=== PATIENT | male | born 1985 | race Caucasian/White ===

== ENCOUNTER 2024-12-25 20:10 | Inpatient (IN) | payer BC ==
--- NOTE | 2024-12-25 21:19 | ED ---
Arrhythmia/Palpitations HPI - General Chief Complaint: Arrhythmia/Palpitations Stated Complaint: heart beating fast Time Seen by Provider: 12/25/24 20:31 Source: patient Limitations: no limitations - History of Present Illness Initial Comments: 39-year-old male presenting chief complaint of palpitations. Patient reports that he was at work and started to experience the palpitations as well as some shortness of breath. He reports that he felt "something is not right". He is having no chest pain. He is having some dizziness. No nausea vomiting or abdominal pain. Patient does have alcohol use disorder, he drinks half of a fifth daily. Last drink was around 2 AM. No headache. No hallucinations. No lower extremity swelling. Does not take any medications. - Related Data Previous Rx's Medication Instructions Recorded Apixaban [Eliquis] 5 mg PO BID 28 Days #56 tab 12/27/24 Losartan [Cozaar] 25 mg PO DAILY #30 tab 12/27/24 Metoprolol Succinate (ER) [Toprol 50 mg PO DAILY #30 tab 12/27/24 XL] Allergies Allergy/AdvReac Type Severity Reaction Status Date / Time Sulfa (Sulfonamide Allergy Unknown Verified 12/26/24 07:34 Antibiotics) Childhood Review of Systems ROS Statement: Those systems with pertinent positive or pertinent negative responses have been documented in the HPI. ROS Other: All systems not noted in ROS Statement are negative. Past Medical History Past Medical History: No Reported History History of Any Multi-Drug Resistant Organisms: None Reported Past Surgical History: No Surgical Hx Reported Past Psychological History: No Psychological Hx Reported Smoking Status: Never smoker Past Alcohol Use History: Heavy Past Drug Use History: Marijuana General Exam Limitations: no limitations General appearance: alert, in no apparent distress Head exam: Present: atraumatic, normocephalic, normal inspection Eye exam: Present: normal appearance, EOMI Neck exam: Present: normal inspection. Absent: meningismus Respiratory exam: Present: normal lung sounds bilaterally. Absent: respiratory distress, wheezes, rales, rhonchi, stridor Cardiovascular Exam: Present: tachycardia, irregular rhythm. Absent: systolic murmur, diastolic murmur, rubs, gallop, clicks Extremities exam: Absent: pedal edema Neurological exam: Present: alert, oriented X3 Psychiatric exam: Present: normal affect, normal mood Skin exam: Present: warm, dry Course Vital Signs 12/25/24 12/25/24 12/25/24 20:13 20:52 21:17 Temperature 97.9 F Pulse Rate 81 124 H Pulse Rate [ 154 H Case Management Specialist ] Respiratory 18 15 Rate Blood Pressure 226/145 151/110 Blood Pressure [Right Arm] O2 Sat by Pulse 96 97 Oximetry 12/25/24 12/25/24 12/26/24 22:47 23:15 00:07 Temperature 97.7 F Pulse Rate 105 H 124 H Pulse Rate [ 89 Case Management Specialist ] Respiratory 17 17 18 Rate Blood Pressure 142/128 128/104 Blood Pressure 123/91 [Right Arm] O2 Sat by Pulse 97 97 99 Oximetry 12/26/24 12/26/24 12/26/24 03:24 08:30 12:00 Temperature 98.5 F 98.2 F Pulse Rate Pulse Rate [ 90 84 71 Case Management Specialist ] Respiratory 18 16 16 Rate Blood Pressure Blood Pressure 130/104 140/87 132/108 [Right Arm] O2 Sat by Pulse 99 97 97 Oximetry 12/26/24 16:45 Temperature 98.2 F Pulse Rate Pulse Rate [ 75 Case Management Specialist ] Respiratory 16 Rate Blood Pressure Blood Pressure 149/100 [Right Arm] O2 Sat by Pulse 98 Oximetry Medical Decision Making - Medical Decision Making EKG shows A-fib with RVR. Ventricular rate 145. QRS 99. QT 277. QTc 361. Was pt. sent in by a medical professional or institution (, PA, LOW VISION THERAPIST, urgent care, hospital, or snf...) When possible be specific @ -No Did you speak to anyone other than the patient for history (EMS, parent, family, police, friend...)? What history was obtained from this source @ -No Did you review nursing and triage notes (agree or disagree)? Why? @ -I reviewed and agree with nursing and triage notes Were old charts reviewed (outside hosp., previous admission, EMS record, old EKG, old radiological studies, urgent care reports/EKG's, snf records)? Report findings @ -No old charts were reviewed Differential Diagnosis (chest pain, altered mental status, abdominal pain women, abdominal pain men, vaginal bleeding, weakness, fever, dyspnea, syncope, headache, dizziness, GI bleed, back pain, seizure, CVA, palpatations, mental health, musculoskeletal)? @ -Differential Palpitations Ventricular arrhythmias, atrial arrhythmias, myocardial infarction, anemia, thyrotoxicosis, electrolyte imbalance, hypokalemia, pulmonary embolism, pulmonary disease, drugs, alcohol, anxiety, stress.... This is not meant to be an all-inclusive list. EKG interpreted by me (3pts min.). @ -As above X-rays interpreted by me (1pt min.). @ -Chest x-ray shows no acute process CT interpreted by me (1pt min.). @ -None done U/S interpreted by me (1pt. min.). @ -None done What testing was considered but not performed or refused? (CT, X-rays, U/S, labs)? Why? @ -None What meds were considered but not given or refused? Why? @ -None Did you discuss the management of the patient with other professionals (professionals i.e. , PA, LOW VISION THERAPIST, lab, RT, psych nurse, social services, residence life coordinator, teacher, audit officer, pillowcase cleaner)? Give summary @ -Spoke with Myrna Hu from [facility] who accepts admission Was smoking cessation discussed for >3mins.? @ -No Was critical care preformed (if so, how long)? @ -No Were there social determinants of health that impacted care today? How? (Homelessness, low income, unemployed, alcoholism, drug addiction, transportation, low edu. Level, literacy, decrease access to med. care, retirement, rehab)? @ -No Was there de-escalation of care discussed even if they declined (Discuss DNR or withdrawal of care, Hospice)? DNR status @ -No What co-morbidities impacted this encounter? (DM, HTN, Smoking, COPD, CAD, Cancer, CVA, ARF, Chemo, Hep., AIDS, mental health diagnosis, sleep apnea, morbid obesity)? @ -Alcohol use disorder Was patient admitted / discharged? Hospital course, mention meds given and route, prescriptions, significant lab abnormalities, going to OR and other pertinent info. @ -39-year-old male presenting with chief complaint of palpitations. History of alcoholism. History and physical examination are conducted. Patient is tachycardic with an irregular rhythm. He has noted to be in A-fib RVR. He is started on a Cardizem drip, with a bolus of 10 mg and rate of 10 mg/h. Lab work requires no immediate action. Negative troponin and negative D-dimer. TSH is WNL. Elevated AST and ALT which corresponds to the patient's alcohol use. His last drink was at 2 AM. Patient is started on heparin. He is also started on CIWA protocol. He is educated on today's findings. He will require admission for new onset A-fib with RVR. Patient is agreeable with this plan. I discussed this case with my attending Dr. Davison Undiagnosed new problem with uncertain prognosis? @ -No Drug Therapy requiring intensive monitoring for toxicity (Heparin, Nitro, Insulin, Cardizem)? @ -Heparin, Cardizem Were any procedures done? @ -No Diagnosis/symptom? @ -A-fib RVR Acute, or Chronic, or Acute on Chronic? @ -Acute Uncomplicated (without systemic symptoms) or Complicated (systemic symptoms)? @ -Complicated Side effects of treatment? @ -No Exacerbation, Progression, or Severe Exacerbation? @ -No Poses a threat to life or bodily function? How? (Chest pain, [place], [place], pneumonia, PE, COPD, DKA, ARF, appy, cholecystitis, CVA, Diverticulitis, Homicidal, S uicidal, threat to staff... and all critical care pts) @ -Yes - Lab Data Result diagrams: 12/26/24 04:08 12/27/24 07:04 Lab Results 12/25/24 12/25/24 12/25/24 Range/Units 21:12 21:12 21:12 WBC 10.6 (3.8-10.6) k/uL RBC 5.43 (4.30-5.90) m/uL Hgb 17.6 H (13.0-17.5) gm/dL Hct 51.6 (39.0-53.0) % MCV 95.0 (80.0-100.0) fL MCH 32.4 (25.0-35.0) pg MCHC 34.1 (31.0-37.0) g/dL RDW 12.0 (11.5-15.5) % Plt Count 209 (150-450) k/uL MPV 8.4 Neutrophils % 61 % Lymphocytes % 26 % Monocytes % 7 % Eosinophils % 1 % Basophils % 1 % Neutrophils # 6.5 (1.3-7.7) k/uL Lymphocytes # 2.8 (1.0-4.8) k/uL Monocytes # 0.8 (0-1.0) k/uL Eosinophils # 0.1 (0-0.7) k/uL Basophils # 0.1 (0-0.2) k/uL PT 10.7 (10.0-12.5) sec INR 1.0 (<1.2) APTT 24.1 (22.0-30.0) sec D-Dimer <0.17 (<0.60) mg/L FEU Sodium 141 (137-145) mmol/L Potassium 4.3 (3.5-5.1) mmol/L Chloride 102 (98-107) mmol/L Carbon Dioxide 25 (22-30) mmol/L Anion Gap 14 mmol/L BUN 15 (9-20) mg/dL Creatinine 0.95 (0.66-1.25) mg/dL Est GFR (CKD-EPI)AfAm >90 (>60 ml/min/1.73 sqM) Est GFR (CKD-EPI)NonAf >90 (>60 ml/min/1.73 sqM) Glucose 105 H (74-99) mg/dL Calcium 10.1 (8.4-10.2) mg/dL Magnesium 2.2 (1.6-2.3) mg/dL Total Bilirubin 0.8 (0.2-1.3) mg/dL AST 98 H (17-59) U/L ALT 173 H (4-49) U/L Alkaline Phosphatase 86 (38-126) U/L Troponin I (0.000-0.034) ng/mL Total Protein 8.6 H (6.3-8.2) g/dL Albumin 5.3 H (3.5-5.0) g/dL TSH 2.130 (0.465-4.680) mIU/L 12/25/24 Range/Units 21:12 WBC (3.8-10.6) k/uL RBC (4.30-5.90) m/uL Hgb (13.0-17.5) gm/dL Hct (39.0-53.0) % MCV (80.0-100.0) fL MCH (25.0-35.0) pg MCHC (31.0-37.0) g/dL RDW (11.5-15.5) % Plt Count (150-450) k/uL MPV Neutrophils % % Lymphocytes % % Monocytes % % Eosinophils % % Basophils % % Neutrophils # (1.3-7.7) k/uL Lymphocytes # (1.0-4.8) k/uL Monocytes # (0-1.0) k/uL Eosinophils # (0-0.7) k/uL Basophils # (0-0.2) k/uL PT (10.0-12.5) sec INR (<1.2) APTT (22.0-30.0) sec D-Dimer (<0.60) mg/L FEU Sodium (137-145) mmol/L Potassium (3.5-5.1) mmol/L Chloride (98-107) mmol/L Carbon Dioxide (22-30) mmol/L Anion Gap mmol/L BUN (9-20) mg/dL Creatinine (0.66-1.25) mg/dL Est GFR (CKD-EPI)AfAm (>60 ml/min/1.73 sqM) Est GFR (CKD-EPI)NonAf (>60 ml/min/1.73 sqM) Glucose (74-99) mg/dL Calcium (8.4-10.2) mg/dL Magnesium (1.6-2.3) mg/dL Total Bilirubin (0.2-1.3) mg/dL AST (17-59) U/L ALT (4-49) U/L Alkaline Phosphatase (38-126) U/L Troponin I <0.012 (0.000-0.034) ng/mL Total Protein (6.3-8.2) g/dL Albumin (3.5-5.0) g/dL TSH (0.465-4.680) mIU/L Disposition Clinical Impression: Atrial fibrillation with rapid ventricular response Disposition: ADMITTED IP TO THIS HOSP Condition: Serious Time of Disposition: 22:41
[2024-12-25] MEDS: SODIUM CHLORIDE 0.9% 1,000 ML IV ONE (21:23)
[2024-12-25] MEDS: DILTIAZEM DRIP BOLUS FROM BAG 1 MG SOLN IV ONE (21:24)
[2024-12-25] MEDS: DILTIAZEM 125 MG in SODIUM CHLORIDE 0.9% 100 ML IV SCH (21:24)
--- NOTE | 2024-12-25 21:29 | XR ---
EXAMINATION TYPE: XR chest 2V DATE OF EXAM: 12/25/2024 9:16 PM COMPARISON: Chest radiographs from 10/22/2012 CLINICAL INDICATION: Male, 39 years old with history of dysrhythmia; TECHNIQUE: XR chest 2V Frontal and lateral views of the chest. FINDINGS: Lungs/Pleura: There is no evidence of pleural effusion, focal consolidation, or pneumothorax. Pulmonary vascularity: Unremarkable. Heart/mediastinum: Cardiomediastinal silhouette is unremarkable. Musculoskeletal: No acute osseous pathology. IMPRESSION: No acute cardiopulmonary disease/process. [facility], , 12/25/2024 9:27 PM
[2024-12-25 21:42] LABS: Basophils # (A) 0.1 k/uL (0-0.2); Basophils % (A) 1 %; Eosinophils # (A) 0.1 k/uL (0-0.7); Eosinophils % (A) 1 %; HCT 51.6 % (39.0-53.0); HGB 17.6 gm/dL (13.0-17.5); Lymphocytes # (A) 2.8 k/uL (1.0-4.8); Lymphocytes % (A) 26 %; MCH 32.4 pg (25.0-35.0); MCHC 34.1 g/dL (31.0-37.0); Mean Platelet Volume 8.4; Monocytes # (A) 0.8 k/uL (0-1.0); Monocytes % (A) 7 %; Neutrophils # (A) 6.5 k/uL (1.3-7.7); Neutrophils % (A) 61 %; Platelet Count 209 k/uL (150-450); RBC 5.43 m/uL (4.30-5.90); WBC 10.6 k/uL (3.8-10.6)
[2024-12-25 21:56] LABS: ALT 173 U/L (4-49); AST 98 U/L (17-59); African American GFR (CKD) >90 (>60 ml/min/1.73 sqM); Albumin 5.3 g/dL (3.5-5.0); Alkaline Phosphatase 86 U/L (38-126); Anion Gap 14 mmol/L; Blood Urea Nitrogen 15 mg/dL (9-20); Calcium 10.1 mg/dL (8.4-10.2); Carbon Dioxide 25 mmol/L (22-30); Chloride 102 mmol/L (98-107); Glucose 105 mg/dL (74-99); Magnesium 2.2 mg/dL (1.6-2.3); Non-African American GFR(CKD) >90 (>60 ml/min/1.73 sqM); Potassium 4.3 mmol/L (3.5-5.1); Sodium 141 mmol/L (137-145); Total Bilirubin 0.8 mg/dL (0.2-1.3); Total Protein 8.6 g/dL (6.3-8.2)
[2024-12-25 22:09] LABS: Partial Thromboplastin Time 24.1 sec (22.0-30.0); Prothrombin Time 10.7 sec (10.0-12.5)
[2024-12-25] MEDS ORDERED: LORazepam 2 MG/ML INJ IV PRN ×3 (22:35)
[2024-12-25] MEDS ORDERED: NALOXONE 0.4 MG/ML 1 ML VIAL IV PRN (22:39)
[2024-12-25] MEDS: HEPARIN SOD,PORK IN 0.45% NACL 25,000 UNIT in 0.45% NACL 1 250ML.BAG IV SCH (23:11)
[2024-12-25] MEDS: HEPARIN SODIUM 1,000 UN/ML (10ML VL) IV ONE (23:13)
[2024-12-26 00:12] LABS: Appearance,Urine Clear (Clear); Bilirubin,Urine Negative (Negative); Blood,Urine Negative (Negative); Color,Urine Colorless; Glucose,Urine (UA) Negative (Negative); Ketones,Urine Negative (Negative); Leukocyte Esterase,Urine Negative (Negative); Nitrite,Urine Negative (Negative); PH, Urine 7.5 (5.0-8.0); Protein,Urine Negative (Negative); Specific Gravity,Urine 1.009 (1.001-1.035); Urobilinogen,Urine <2.0 mg/dL (<2.0)
[2024-12-26 00:26] LABS: Amphetamine Screen,Urine Not Detected (NotDetected); Barbiturate Screen,Urine Not Detected (NotDetected); Benzodiazepines Screen,Urine Not Detected (NotDetected); Cocaine Screen,Urine Not Detected (NotDetected); Methadone Screen, Urine Not Detected (NotDetected); Opiate Screen,Urine Not Detected (NotDetected); Oxycodone Screen, Urine Not Detected (NotDetected); Phencyclidine Screen,Urine Not Detected (NotDetected); Tricyclic Antidepressant,Urine Not Detected (NotDetected); Urn Cannabinoid Scrn Detected (NotDetected)
[2024-12-26 04:22] LABS: Basophils # (A) 0.1 k/uL (0-0.2); Basophils % (A) 1 %; Eosinophils % (A) 1 %; HCT 51.5 % (39.0-53.0); HGB 16.6 gm/dL (13.0-17.5); Lymphocytes # (A) 2.3 k/uL (1.0-4.8); Lymphocytes % (A) 24 %; MCH 30.9 pg (25.0-35.0); MCHC 32.3 g/dL (31.0-37.0); MCV 95.7 fL (80.0-100.0); Mean Platelet Volume 8.7; Monocytes # (A) 0.5 k/uL (0-1.0); Monocytes % (A) 5 %; Neutrophils # (A) 6.4 k/uL (1.3-7.7); Neutrophils % (A) 67 %; Platelet Count 212 k/uL (150-450); RBC 5.39 m/uL (4.30-5.90); RDW 11.9 % (11.5-15.5); WBC 9.5 k/uL (3.8-10.6)
[2024-12-26 04:41] LABS: Prothrombin Time 11.1 sec (10.0-12.5)
[2024-12-26] MEDS: HEPARIN SODIUM 1,000 UN/ML (10ML VL) IV PRN (05:00)
[2024-12-26] MEDS: SODIUM CHLORIDE 0.9% 1,000 ML IV SCH (05:42)
[2024-12-26] MEDS: METOPROLOL TARTRATE 25 MG TAB PO SCH (08:30)
--- NOTE | 2024-12-26 10:08 | P.CRDCN ---
History of Present Illness Consult date: 12/26/24 Reason for Consult (text): New onset A-fib with RVR History of present illness: This is a 39-year-old male with no previous cardiac history. 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 Patient does have history of alcohol abuse and usually drinks 1 pint per day. Patient gives history that he felt his heart was beating weird yesterday. He states he was just walking when it occurred. He had someone check his blood pressure at work and it was found to be elevated. Upon arrival to the emergency center, blood pressure was 226/145. Patient denies having any chest pain. No lightheadedness or dizziness, no syncopal episodes. He denies history of smoking. Patient was found to be in atrial fibrillation at 145 beats per minute. He has been started on Cardizem drip and heparin drip. Discussed plan to continue current medical management and if he has not converted by morning, perform SORAYA and cardioversion. Patient is agreeable to move forward with this tomorrow. Patient has been started on the CIWA protocol. His last alcohol intake was Tuesday at 2 AM. He is normally physically active and walks 7 to 8 miles per day at work. Blood pressure 130/104, heart rate 90, pulse ox 99% on room air. Telemetry is atrial fibrillation. -EKG: Atrial fibrillation at 145 bpm -Chest x-ray: No acute findings -Laboratory studies: CBC INR, electrolytes and renal function within normal limits. AST 98, ALT 178. Troponin negative x 1. TSH 2.13. Urine drug screen positive for marijuana. -Home cardiac medications: None Review Of Systems: At the time of my exam: CONSTITUTIONAL: Denies fever or chills. HEENT: Denies blurred vision, vision changes, or eye pain. Denies hemoptysis CARDIOVASCULAR: Denies chest pain. Denies orthopnea. Denies PND. Denies palpitations RESPIRATORY: Denies shortness of breath. GASTROINTESTINAL: Denies abdominal pain. Denies nausea or vomiting. HEMATOLOGIC: Denies bleeding disorders. GENITOURINARY: Denies any blood in urine. SKIN: Denies puritis. Denies rash. Physical examination: Gen: This is a 39-year-old male in no acute distress VS: reviewed HEENT: Head is atraumatic, normocephalic. Pupils equal, round. Sclerae is anicteric. NECK: Supple. No JVD. LUNGS: Clear to auscultation. No wheezes or rhonchi. No intercostal retractions. HEART: Irregular rate and rhythm. No murmur. ABDOMEN: Soft No tenderness. EXTREMITIES: No pedal edema. No calf tenderness. NEUROLOGICAL: Patient is awake, alert and oriented x3. Assessment: New onset paroxysmal A-fib with RVR, currently rate controlled Hypertensive urgency Alcohol abuse Marijuana use Plan: Continue patient on Cardizem drip at 10 mg/h Start patient on Lopressor 25 mg 3 times daily Continue heparin drip Schedule patient for SORAYA and cardioversion tomorrow with Dr. Velazquez Obtain 2-D echocardiogram and Doppler study to assess cardiac structure and function Further recommendations to follow based upon clinical course Thank you kindly for this consultation. Nurse practitioner note has been reviewed, I agree with documented findings and plan of care. Patient was seen and examined. Past Medical History Past Medical History: No Reported History History of Any Multi-Drug Resistant Organisms: None Reported Past Surgical History: No Surgical Hx Reported Past Psychological History: No Psychological Hx Reported Smoking Status: Never smoker Past Alcohol Use History: Heavy Past Drug Use History: Marijuana Medications and Allergies Home Medications Medication Instructions Recorded Confirmed Type No Known Home Medications 12/26/24 12/26/24 History Allergies Allergy/AdvReac Type Severity Reaction Status Date / Time Sulfa (Sulfonamide Allergy Unknown Verified 12/26/24 07:34 Antibiotics) Childhood Physical Exam Vitals: Vital Signs Temp Pulse Pulse Resp BP BP Pulse Ox 12/26/24 03:24 90 18 130/104 99 12/26/24 00:07 97.7 F 89 18 123/91 99 12/25/24 23:15 124 H 17 128/104 97 12/25/24 22:47 105 H 17 142/128 97 12/25/24 21:17 124 H 15 151/110 97 12/25/24 20:52 154 H 12/25/24 20:13 97.9 F 81 18 226/145 96 Intake and Output 12/25/24 12/26/24 12/26/24 22:59 06:59 14:59 Intake Total 58.345 Balance 58.345 Intake: Intake, IV Titration 58.345 Amount Heparin Sod,Pork in 0.45% 58.345 NaCl 25,000 unit In 0.45 % NaCl 1 250ml.bag @ 7.35 UNITS/KG/HR 10.002 mls/ hr IV .Q24H [facility] Rx#: [id number] Other: Weight 136.078 kg Results 12/26/24 04:08 12/25/24 21:12 Cardiac Enzymes 12/25/24 12/25/24 Range/Units 21:12 21:12 AST 98 H (17-59) U/L Troponin I <0.012 (0.000-0.034) ng/mL Coagulation 12/25/24 12/26/24 Range/Units 21:12 04:08 PT 10.7 11.1 (10.0-12.5) sec APTT 24.1 27.0 (22.0-30.0) sec CBC 12/25/24 12/26/24 Range/Units 21:12 04:08 WBC 10.6 9.5 (3.8-10.6) k/uL RBC 5.43 5.39 (4.30-5.90) m/uL Hgb 17.6 H 16.6 (13.0-17.5) gm/dL Hct 51.6 51.5 (39.0-53.0) % Plt Count 209 212 (150-450) k/uL Comprehensive Metabolic Panel 12/25/24 Range/Units 21:12 Sodium 141 (137-145) mmol/L Potassium 4.3 (3.5-5.1) mmol/L Chloride 102 (98-107) mmol/L Carbon Dioxide 25 (22-30) mmol/L BUN 15 (9-20) mg/dL Creatinine 0.95 (0.66-1.25) mg/dL Glucose 105 H (74-99) mg/dL Calcium 10.1 (8.4-10.2) mg/dL AST 98 H (17-59) U/L ALT 173 H (4-49) U/L Alkaline Phosphatase 86 (38-126) U/L Total Protein 8.6 H (6.3-8.2) g/dL Albumin 5.3 H (3.5-5.0) g/dL Current Medications Generic Name Dose Route Start Last Admin Trade Name Freq PRN Reason Stop Dose Admin Heparin Sodium (Porcine) 0 unit 12/25/24 22:36 12/26/24 05:00 Heparin Sodium 1,000 Un/Ml (10ml Vl) IV 4,000 unit PER PROTOCOL PRN Administration Low PTT Protocol Diltiazem HCl 125 mg/ Sodium 125 mls @ 10 mls/hr 12/25/24 21:00 12/25/24 21:24 Chloride IV 10 mg/hr .[id number] TENA 10 mls/hr Administration 10 MG/HR Heparin Sodium/Sodium Chloride 250 mls @ 10.002 mls/hr 12/25/24 22:45 12/26/24 05:01 25,000 unit/ Sodium Chloride IV 10.35 units/kg/hr .Q24H TENA 14.084 mls/hr Titration Protocol 7.35 UNITS/KG/HR Sodium Chloride 1,000 mls @ 130 mls/hr 12/25/24 22:45 12/26/24 06:03 Saline 0.9% IV 130 mls/hr .[id number] TENA Administration Lorazepam 1 mg 12/25/24 22:35 Lorazepam 2 Mg/Ml Inj IV Q1HR PRN CIWA 10 to 15 Lorazepam 1 mg 12/25/24 22:35 Lorazepam 2 Mg/Ml Inj IV Q2HR PRN CIWA 8 or 9 Lorazepam 2 mg 12/25/24 22:35 Lorazepam 2 Mg/Ml Inj IV 12/27/24 22:35 Q10M PRN CIWA 16 or higher Naloxone HCl 0.2 mg 12/25/24 22:39 Naloxone 0.4 Mg/Ml 1 Ml Vial IV Q2M PRN Opioid Reversal Intake and Output 12/25/24 12/26/24 12/26/24 22:59 06:59 14:59 Intake Total 58.345 Balance 58.345 Intake: Intake, IV Titration 58.345 Amount Heparin Sod,Pork in 0.45% 58.345 NaCl 25,000 unit In 0.45 % NaCl 1 250ml.bag @ 7.35 UNITS/KG/HR 10.002 mls/ hr IV .Q24H [facility] Rx#: [id number] Other: Weight 136.078 kg 12/26/24 04:08 12/25/24 21:12
[2024-12-26] MEDS ORDERED: fentaNYL (PF) 50 MCG/ML 2 ML AMP IVP PRN (10:10)
[2024-12-26] MEDS ORDERED: MIDAZOLAM 2 MG/2 ML VIAL IV PRN (10:10)
[2024-12-26] MEDS ORDERED: BENZOCAINE SPRAY 1 CAN TOPICAL PRN (10:10)
--- NOTE | 2024-12-26 12:09 | P.HPIM ---
History of Present Illness Patient is pleasant 39-year-old male came in with complaints of palpitations found to be in atrial fibrillation with rapid unclear rate presently on Cardizem which is being transitioned to metoprolol patient is also on IV heparin at this time. Patient does have history of alcoholism drinks on average about a pint of hard liquor daily. Patient denies any shortness of breath pulmonary edema at this time chest x-ray did not show any significant abnormality EKG atrial fibrillation with rapid unclear rate AST and ALT are mildly elevated TSH within normal limits drug screen is positive for marijuana and patient does admit to vaping marijuana. REVIEW OF SYSTEMS: All other systems are negative except those mentioned in the HPI PHYSICAL EXAMINATION: GENERAL: The patient is alert and oriented x3, not in any acute distress. Well developed, well nourished. HEENT: Pupils are round and equally reacting to light. EOMI. No scleral icterus. No conjunctival pallor. Normocephalic, atraumatic. No pharyngeal erythema. No thyromegaly. CARDIOVASCULAR: S1 and S2 present. No murmurs, rubs, or gallops. PULMONARY: Chest is clear to auscultation, no wheezing or crackles. ABDOMEN: Soft, nontender, nondistended, normoactive bowel sounds. No palpable organomegaly. MUSCULOSKELETAL: No joint swelling or deformity. EXTREMITIES: No cyanosis, clubbing, or pedal edema. NEUROLOGICAL: Gross neurological examination did not reveal any focal deficits. SKIN: No rashes. Assessment and plan New onset atrial fibrillation: Probably secondary to alcohol use and marijuana use continue with Cardizem wean off Cardizem patient was started on beta-sergio continue with IV heparin. Plan for SORAYA cardioversion if he does not convert by tomorrow -Alcohol use patient did not have any withdrawals in the past. Although patient is on withdrawal precautions at this time -Acute alcoholic hepatitis -Possible essential hypertension DVT prophylaxis: On anticoagulation with IV heparin Past Medical History Past Medical History: No Reported History History of Any Multi-Drug Resistant Organisms: None Reported Past Surgical History: No Surgical Hx Reported Past Psychological History: No Psychological Hx Reported Smoking Status: Never smoker Past Alcohol Use History: Heavy Past Drug Use History: Marijuana Medications and Allergies Home Medications Medication Instructions Recorded Confirmed Type No Known Home Medications 12/26/24 12/26/24 History Allergies Allergy/AdvReac Type Severity Reaction Status Date / Time Sulfa (Sulfonamide Allergy Unknown Verified 12/26/24 07:34 Antibiotics) Childhood Physical Exam Vitals: Vital Signs Temp Pulse Pulse Resp BP BP Pulse Ox 12/26/24 03:24 90 18 130/104 99 12/26/24 00:07 97.7 F 89 18 123/91 99 12/25/24 23:15 124 H 17 128/104 97 12/25/24 22:47 105 H 17 142/128 97 12/25/24 21:17 124 H 15 151/110 97 12/25/24 20:52 154 H 12/25/24 20:13 97.9 F 81 18 226/145 96 Intake and Output 12/25/24 12/26/24 12/26/24 22:59 06:59 14:59 Intake Total 58.345 209.353 Balance 58.345 209.353 Intake: Intake, IV Titration 58.345 209.353 Amount Diltiazem 125 mg In 111 Sodium Chloride 0.9% 100 ml @ 10 MG/HR 10 mls/hr IV .[id number] [facility] Rx#: [id number] Heparin Sod,Pork in 0.45% 58.345 98.353 NaCl 25,000 unit In 0.45 % NaCl 1 250ml.bag @ 7.35 UNITS/KG/HR 10.002 mls/ hr IV .Q24H [facility] Rx#: [id number] Other: Weight 136.078 kg Results CBC & Chem 7: 12/26/24 04:08 12/25/24 21:12 Labs: Abnormal Lab Results - Last 24 Hours (Table) 12/25/24 12/25/24 12/25/24 Range/Units 21:12 21:12 23:15 Hgb 17.6 H (13.0-17.5) gm/dL APTT (22.0-30.0) sec Glucose 105 H (74-99) mg/dL AST 98 H (17-59) U/L ALT 173 H (4-49) U/L Total Protein 8.6 H (6.3-8.2) g/dL Albumin 5.3 H (3.5-5.0) g/dL U Marijuana (THC) Screen Detected H (NotDetected) 12/26/24 Range/Units 10:39 Hgb (13.0-17.5) gm/dL APTT 32.6 H (22.0-30.0) sec Glucose (74-99) mg/dL AST (17-59) U/L ALT (4-49) U/L Total Protein (6.3-8.2) g/dL Albumin (3.5-5.0) g/dL U Marijuana (THC) Screen (NotDetected)
[2024-12-27 05:01] VITALS: TEMP 98.4
[2024-12-27] MEDS ORDERED: LORazepam 1 MG/0.5 ML VIAL IV PRN ×3 (08:08→08:09)
[2024-12-27 09:32] LABS: ALT 174 U/L (4-49); AST 114 U/L (17-59); African American GFR (CKD) >90 (>60 ml/min/1.73 sqM); Albumin 4.3 g/dL (3.5-5.0); Alkaline Phosphatase 65 U/L (38-126); Anion Gap 11 mmol/L; Blood Urea Nitrogen 10 mg/dL (9-20); Carbon Dioxide 21 mmol/L (22-30); Chloride 106 mmol/L (98-107); Glucose 98 mg/dL (74-99); Non-African American GFR(CKD) >90 (>60 ml/min/1.73 sqM); Potassium 4.2 mmol/L (3.5-5.1); Sodium 138 mmol/L (137-145)
[2024-12-27] MEDS: APIXABAN 5 MG TAB PO SCH (10:40)
[2024-12-27] MEDS: LOSARTAN 25 MG TAB PO SCH (10:40)
[2024-12-27] MEDS: METOPROLOL SUCCINATE (ER) 50 MG TAB.ER.24H PO SCH (10:40)
--- NOTE | 2024-12-27 13:24 | CA ---
Transthoracic Echo Report Name: Christ De Los Santos Age: 39 Gender: M : 1985 Exam Date: 12/27/2024 07:44 Exam Location: [facility] Ht (in): 73 Wt (lb): 300 Ordering Physician: Charli Manzano Attending/Referring Phys: Can Washer Jerica Stringer RDCS Procedure CPT: Indications: new onset a-fib rvr Cardiac Hx: Technical Quality: Good Contrast 1: Total Dose (mL): Contrast 2: Total Dose (mL): MEASUREMENTS (Male / Female) Normal Values 2D ECHO LV Diastolic Diameter PLAX 4.9 cm 4.2 - 5.9 / 3.9 - 5.3 cm LV Systolic Diameter PLAX 3.5 cm IVS Diastolic Thickness 1.4 cm 0.6 - 1.0 / 0.6 - 0.9 cm LVPW Diastolic Thickness 1.4 cm 0.6 - 1.0 / 0.6 - 0.9 cm LV Relative Wall Thickness 0.6 LVOT Diameter 2.1 cm LV Diastolic Volume MOD BP 197.7 cm??? 67 - 155 / 56 - 104 cm??? LV Systolic Volume MOD BP 83.8 cm??? 22 - 58 / 19 - 49 cm??? LV Ejection Fraction MOD BP 57.6 % >= 55 % LV Cardiac Index MOD BP 2866.1 cm???/min???m??? LV Diastolic Volume MOD 4C 188.2 cm??? LV Systolic Volume MOD 4C 77.0 cm??? LV Ejection Fraction MOD 4C 59.1 % LV Cardiac Index MOD 4C 2797.7 cm???/min???m??? LV Diastolic Length 4C 9.5 cm LV Systolic Length 4C 7.7 cm LV Diastolic Volume MOD 2C 205.4 cm??? LV Systolic Volume MOD 2C 87.3 cm??? LV Ejection Fraction MOD 2C 57.5 % LV Cardiac Index MOD 2C 2973.0 cm???/min???m??? LV Diastolic Length 2C 9.7 cm LV Systolic Length 2C 8.2 cm LA Volume 85.9 cm??? 18 - 58 / 22 - 52 cm??? LA Volume Index 31.8 cm???/m??? 16 - 28 cm???/m??? DOPPLER AV Peak Velocity 118.0 cm/s AV Peak Gradient 5.6 mmHg AV Mean Velocity 84.4 cm/s AV Mean Gradient 3.1 mmHg AV Velocity Time Integral 23.0 cm LVOT Peak Velocity 96.3 cm/s LVOT Peak Gradient 3.7 mmHg LVOT Velocity Time Integral 17.7 cm LVOT Stroke Volume 64.1 cm??? LVOT Stroke Volume Index 25.1 ml/m??? LVOT Cardiac Index 1612.4 cm???/min???m??? AV Area Cont Eq vti 2.8 cm??? AV Area Cont Eq pk 3.0 cm??? MV Area PHT 4.2 cm??? Mitral E Point Velocity 79.6 cm/s Mitral A Point Velocity 52.3 cm/s Mitral E to A Ratio 1.5 MV Deceleration Time 180.1 ms TR Peak Velocity 207.3 cm/s TR Peak Gradient 17.2 mmHg Right Atrial Pressure 5.0 mmHg Pulmonary Artery Systolic Pressu 22.2 mmHg Right Ventricular Systolic Press 22.2 mmHg PV Peak Velocity 75.3 cm/s PV Peak Gradient 2.3 mmHg FINDINGS Left Ventricle Left ventricular ejection fraction is estimated at 55-60 %. Normal left ventricular systolic function with no obvious regional wall motion abnormalities. Left ventricular cavity size normal. Moderately increased left ventricular wall thickness. Right Ventricle Mild right ventricular dilatation. Normal right ventricular global systolic function. Right ventricular systolic pressure within normal limits. Right Atrium Normal right atrial size. Left Atrium Mildly increased left atrial volume. Mildly increased left atrial area. Mitral Valve Structurally normal mitral valve. No evidence for mitral valve prolapse. No mitral stenosis. Mild mitral regurgitation. Aortic Valve Trileaflet aortic valve. No aortic valve stenosis or regurgitation. Tricuspid Valve Structurally normal tricuspid valve. No tricuspid stenosis. mild tricuspid regurgitation. Pulmonic Valve Structurally normal pulmonic valve. No pulmonic stenosis. Trace pulmonic regurgitation. Pericardium No pericardial effusion. Aorta Aortic annulus normal. Ascending aorta mildly enlarged. CONCLUSIONS Normal ventricular size and systolic function Mild mitral and tricuspid regurgitation Previewed by: Dr. Sandi Lundberg MD (Electronically Signed) Final Date: 27 December 2024 13:23
[2024-12-27 13:43] VITALS: BP 143/87; PULSE 77; RESP 18
--- NOTE | 2024-12-27 14:37 | P.PN ---
Subjective Progress Note Date: 12/27/24 Reason for Consult (text): New onset A-fib with RVR History of present illness: This is a 39-year-old male with no previous cardiac history. 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 Patient does have history of alcohol abuse and usually drinks 1 pint per day. Patient gives history that he felt his heart was beating weird yesterday. He states he was just walking when it occurred. He had someone check his blood pressure at work and it was found to be elevated. Upon arrival to the emergency center, blood pressure was 226/145. Patient rosalva es having any chest pain. No lightheadedness or dizziness, no syncopal episodes. He denies history of smoking. Patient was found to be in atrial fibrillation at 145 beats per minute. He has been started on Cardizem drip and heparin drip. Discussed plan to continue current medical management and if he has not converted by morning, perform SORAYA and cardioversion. Patient is agreeable to move forward with this tomorrow. Patient has been started on the CIWA protocol. His last alcohol intake was Tuesday at 2 AM. He is normally physically active and walks 7 to 8 miles per day at work. Blood pressure 130/104, heart rate 90, pulse ox 99% on room air. Telemetry is atrial fibrillation. -EKG: Atrial fibrillation at 145 bpm -Chest x-ray: No acute findings -Laboratory studies: CBC INR, electrolytes and renal function within normal limits. AST 98, ALT 178. Troponin negative x 1. TSH 2.13. Urine drug screen positive for marijuana. -Home cardiac medications: None 12/27 Patient seen and examined on the cardiac stepdown unit. Patient has converted to sinus rhythm and SORAYA and cardioversion has been canceled for today. Cardizem drip will be discontinued. Blood pressure 150/96, heart rate 80, pulse ox 98% on room air. Repeat blood work reveals creatinine 0.7, potassium 4.2. [place] rdiogram reveals EF of 55 to 60%, mild mitral and tricuspid regurgitation. Physical examination: Gen: This is a 39-year-old male in no acute distress VS: reviewed HEENT: Head is atraumatic, normocephalic. Pupils equal, round. Sclerae is anicteric. NECK: Supple. No JVD. LUNGS: Clear to auscultation. No wheezes or rhonchi. No intercostal retractions. HEART: Regular rate and rhythm. No murmur. ABDOMEN: Soft No tenderness. EXTREMITIES: No pedal edema. No calf tenderness. NEUROLOGICAL: Patient is awake, alert and oriented x3. Assessment: New onset paroxysmal A-fib with RVR, currently sinus rhythm Hypertensive urgency Alcohol abuse Marijuana use Plan: Discontinue Cardizem drip Start patient on Toprol XL 50 mg daily and discontinue short acting beta-sergio Add losartan 25 mg daily Discontinue IV heparin and start patient on Eliquis 5 mg twice daily Patient is cleared for discharge from cardiology and will follow-up in the office with Dr. Rachelle Velazquez in 2 weeks. Nurse practitioner note has been reviewed, I agree with documented findings and plan of care. Patient was seen and examined. Objective - Vital Signs Vital signs: Vital Signs Temp 98.4 F 12/27/24 04:00 Pulse 77 12/27/24 12:00 Resp 18 12/27/24 12:00 BP 143/87 12/27/24 12:00 Pulse Ox 98 12/27/24 12:00 FiO2 Intake & Output 12/26/24 12/27/24 12/27/24 18:59 06:59 18:59 Intake Total 1890.582 981.008 21.333 Balance 1890.582 981.008 21.333 Weight 132.7 kg Intake: Intake, IV Titration 1290.582 441.008 21.333 Amount Diltiazem 125 mg In 111 212.166 21.333 Sodium Chloride 0.9% 100 ml @ 10 MG/HR 10 mls/hr IV .[id number] TENA Rx#: [id number] Heparin Sod,Pork in 0.45% 179.582 228.842 NaCl 25,000 unit In 0.45 % NaCl 1 250ml.bag @ 7.35 UNITS/KG/HR 10.002 mls/ hr IV .Q24H TENA Rx#: [id number] Sodium Chloride 0.9% 1, 1000 000 ml @ 130 mls/hr IV . [id number] TENA Rx#:[id number] Oral 600 540 Other: Voiding Method Toilet Toilet # Voids 2 1 # Bowel Movements 0 - Labs CBC & Chem 7: 12/26/24 04:08 12/27/24 07:04 Labs: Abnormal Lab Results - Last 24 Hours (Table) 12/26/24 12/27/24 12/27/24 Range/Units 19:13 07:04 07:04 APTT 40.5 H 41.8 H (22.0-30.0) sec Carbon Dioxide 21 L (22-30) mmol/L AST 114 H (17-59) U/L ALT 174 H (4-49) U/L
--- NOTE | 2024-12-30 08:42 | P.DS ---
Providers Date of admission: 12/25/24 22:54 Attending physician: Johnny Lane Consults: 12/25/24 22:39 Consult Physician Urgent Consulting Provider: [facility] Consult Reason/Comments: New onset A-fib RVR Do you want consulting provider notified?: Yes, Notify in am Primary care physician: Stated None Hospital Course: Final Diagnosis New onset paroxysmal A-fib with RVR, currently sinus rhythm Hypertensive urgency possible underlying essential hypertension Acute alcoholic hepatitis Alcohol abuse Marijuana use Discharge Disposition Patient stable for discharge home. He is discharged on 4 weeks of Eliquis therapy 5 mg twice daily and patient to follow-up with Dr. Velazquez in the office in 3 weeks. Hospital Course This is a 39-year-old male who came in with complaints of palpitations was found to be in atrial fibrillation with rapid ventricular rate on admission. Patient was started on Cardizem and IV heparin. Patient does have a history of alcoholism and drinks an average of a pint of hard liquor every day. He is not complaining of any shortness of breath he has no evidence of any pulmonary edema on the chest x-ray. His AST and ALT are mildly elevated. TSH is within normal limits. His drug screen is positive for marijuana. Patient was eval by cardiology. He had an echocardiogram which reveals an ejection fraction of 55 to 60% with normal ventricle size and systolic function with mild mitral and tricuspid regurgitation. Patient was transition to oral metoprolol and has spontaneously converted out of atrial fibrillation and is now maintaining normal sinus mechanism with a heart rate in the 70s. His blood pressure is 143/87. He has been afebrile and saturating 90% on room air oxygen. Patient will be discharged on 4 weeks of Eliquis and recommended to follow-up with Dr. Velazquez in the office in 3 weeks. Patient does not have a PCP and was referred to Dr. Fritz Reed in [place] on follow up. Please see medication reconciliation for a list of current medications. Thank you for allowing us to participate in the care of this patient. The impression and plan of care has been dictated by Radha Marrufo, Nurse Practitioner as directed. Dr. Jacque MD I have performed a history and physical examination and medical decision making of this patient, discussed the same with the dictator, and agree with the dictators assessment and plan as written, documented as a scribe. Based on total visit time, I have performed more than 50% of this visit. Patient Condition at Discharge: Fair Plan - Discharge Summary Discharge Rx Participant: Yes New Discharge Prescriptions: New Apixaban [Eliquis] 5 mg PO BID 28 Days #56 tab Losartan [Cozaar] 25 mg PO DAILY #30 tab Metoprolol Succinate (ER) [Toprol XL] 50 mg PO DAILY #30 tab Discharge Medication List Apixaban [Eliquis] 5 mg PO BID 28 Days #56 tab 12/27/24 [Rx] Losartan [Cozaar] 25 mg PO DAILY #30 tab 12/27/24 [Rx] Metoprolol Succinate (ER) [Toprol XL] 50 mg PO DAILY #30 tab 12/27/24 [Rx] Follow up Appointment(s)/Referral(s): None,Stated [Primary Care Provider] - 1-2 days Av Velazquez MD [STAFF PHYSICIAN] - 3 Weeks Fritz Reed MD [REFERRING] - 1 Week (Family doctor ) Activity/Diet/Wound Care/Special Instructions: Continue eliquis 5 mg twice daily for 4 weeks Follow up with cardiology Dr Velazquez in 3 weeks Establish care with a family doctor Discharge Disposition: HOME SELF-CARE
== END 2024-12-27 16:31 | disposition home or self-care (01) | DRG 310 ==
LOC: EC 20:10 → 3SCARD 22:54
PROVIDERS: ADMIT Hospitalist; ATTEND Hospitalist
PROC: 3E033RZ Introduction of Antiarrhythmic into Peripheral Vein, Percutaneous Approach (ICD-10-PCS; principal; 2024-12-25)
DX: I48.0 Paroxysmal atrial fibrillation (principal); I16.0 Hypertensive urgency; K70.10 Alcoholic hepatitis without ascites; F10.20 Alcohol dependence, uncomplicated; I10 Essential (primary) hypertension; Z53.8 Procedure and treatment not carried out for other reasons; Z88.2 Allergy status to sulfonamides
CPT/HCPCS: 36415; 71046; 80053; 80306; 81003; 83735; 84443; 84484; 85025; 85379; 85610; 85730; 93005; 93306; 96365; 96366; 96368; 99285